=== PATIENT | female | born 1970 | race Caucasian/White ===

== ENCOUNTER 2018-02-20 17:50 | Emergency (ER) | payer SELFPAY, OTHER ==
[2018-02-20] MEDS: CYCLOBENZAPRINE 10 MG TABLET. PO (20:21)
[2018-02-20] MEDS: HYDROcodone/APAP 5/325MG 1 TAB TABLET PO (20:21)
== END 2018-02-20 21:15 | disposition home or self-care (01) ==
LOC: ER 17:50
DX: S30.0XXA Contusion of lower back and pelvis, initial encounter (principal); S20.229A Contusion of unspecified back wall of thorax, initial encounter; Z88.8 Allergy status to other drugs, medicaments and biological substances; Z90.49 Acquired absence of other specified parts of digestive tract; W17.89XA Other fall from one level to another, initial encounter; Y93.89 Activity, other specified; Y92.89 Other specified places as the place of occurrence of the external cause; Y99.8 Other external cause status
CPT/HCPCS: 72072; 72100; 99284